=== PATIENT | female | born 1970 | race Caucasian/White ===

== ENCOUNTER 2020-05-20 17:08 | Emergency (ER) | payer SELFPAY ==
[~2020-05-20] VITALS: Ht 165.1 cm; Wt 77.3 kg
[2020-05-20 17:16] VITALS: Ht 165.1 cm; Wt 77.3 kg
[2020-05-20 18:25] VITALS: BP 112/68
== END 2020-05-20 18:26 | disposition home or self-care (01) ==
LOC: D.ER 17:08
DX: S92.402A Displaced unspecified fracture of left great toe, initial encounter for closed fracture (principal); M79.672 Pain in left foot; W19.XXXA Unspecified fall, initial encounter; Y93.9 Activity, unspecified; Y92.9 Unspecified place or not applicable

== ENCOUNTER 2020-05-20 18:57 | Emergency (ER) | payer MEDICARE, MEDICAID ==
[~2020-05-20] VITALS: Ht 165.1 cm; Wt 59.1 kg
[2020-05-20 19:05] VITALS: BP 109/74; Ht 165.1 cm; Wt 59.1 kg
== END 2020-05-20 20:01 | disposition home or self-care (01) ==
LOC: D.ER 18:57
DX: M54.2 Cervicalgia (principal); M79.672 Pain in left foot